=== PATIENT | male | born 1930 | race Caucasian/White ===

== ENCOUNTER 2017-09-12 11:33 | Emergency (ER) | payer OTHER, MEDICAID, MEDICARE ==
[2017-09-12] MEDS: MUPIROCIN 2% 22 GM OINT TOP (13:49)
== END 2017-09-12 13:55 | disposition home or self-care (01) ==
LOC: FTE 11:33
DX: L03.211 Cellulitis of face (principal); E11.9 Type 2 diabetes mellitus without complications
CPT/HCPCS: 99283

== ENCOUNTER 2018-06-14 10:35 | Emergency (ER) | payer OTHER, MEDICAID ==
[2018-06-14] MEDS: ONDANSETRON (ODT) 4 MG TAB ODT (13:20)
[2018-06-14] MEDS: HYDROmorphONE 2 MG/ML SYG IM (13:20)
== END 2018-06-14 16:13 | disposition home or self-care (01) ==
LOC: E/R 16:13
DX: S39.92XA Unspecified injury of lower back, initial encounter (principal); E11.9 Type 2 diabetes mellitus without complications; W18.39XA Other fall on same level, initial encounter; Y92.9 Unspecified place or not applicable
CPT/HCPCS: 72131; 96372; 99285-25

== ENCOUNTER 2018-11-21 15:43 | Emergency (ER) | payer OTHER | END 2018-11-21 17:13 | disposition home or self-care (01) | LOC: E/R 17:13 | DX: L81.9 Disorder of pigmentation, unspecified (principal); E11.9 Type 2 diabetes mellitus without complications; Z79.84 Long term (current) use of oral hypoglycemic drugs | CPT/HCPCS: 99283 ==